=== PATIENT | male | born 1960 | race Caucasian/White ===

== ENCOUNTER → 2020-11-16 14:57 | Outpatient (CLI) | payer OTHER, SELFPAY ==
--- NOTE | ~2020-11-16 | XR_ITS ---
XR shoulder RT min 2V DATE: 11/16/2020 15:14 INDICATION: Bilateral shoulder pain TECHNIQUE: 4 views of right shoulder COMPARISON: None FINDINGS: There is joint space narrowing and spurring at the acromioclavicular joint consistent with degenerative change. There is severe osteoarthritis at the glenohumeral joint with [id number] and prominent osteoarthrit ic spurring. No fracture or dislocation, periosteal reaction or bone destruction or significant abnormal soft tiss ue calcification of the right shoulder is evident. IMPRESSION: Degenerative change at the acromioclavicular joint Severe osteoarthritic change at the right glenohumeral joint Reviewed, dictated and finalized at location B.
--- NOTE | ~2020-11-16 | XR_ITS ---
XR shoulder LT min 2V DATE: 11/16/2020 15:15 INDICATION: Bilateral shoulder pain TECHNIQUE: 4 views COMPARISON: 02/13/2018 left shoulder FINDINGS: There is mild degenerative change at the left, clavicular joint. There is prominent joint space narrowing and spurring at the glenohumeral joint consistent with promi nent osteoarthritis. No fracture, dislocation, periosteal reaction or bone destruction. Chronic 7 x 12 mm left axillary soft tissue calcification, present on 02/13/2018. IMPRESSION: Mild degenerative change at the left acromioclavicular joint Prominent osteoarthritic change at the left glenohumeral joint Reviewed, dictated and finalized at location B.
== END ==
PROVIDERS: Visit Provider Nurse Practitioner Family
DX: M19.011 Primary osteoarthritis, right shoulder (principal); M19.012 Primary osteoarthritis, left shoulder
CPT/HCPCS: 73030